=== PATIENT | male | born 1970 | race Caucasian/White ===

== ENCOUNTER 2017-06-01 11:58 | Day surgery (SDC) | payer OTHER ==
[~2017-06-01] VITALS: Ht 175.3 cm; Wt 91.4 kg
[~2017-06-01 11:58] MED LIST: GABAPENTIN100 MG PO; TRAMADOL HCL50 MG PO
== END 2017-06-01 14:15 | disposition home or self-care (01) ==
LOC: PAIN 11:58
DX: M50.122 Cervical disc disorder at C5-C6 level with radiculopathy (principal); G89.29 Other chronic pain; M48.02 Spinal stenosis, cervical region; M54.5 Low back pain; M51.16 Intervertebral disc disorders with radiculopathy, lumbar region; M47.26 Other spondylosis with radiculopathy, lumbar region; F41.8 Other specified anxiety disorders; F17.200 Nicotine dependence, unspecified, uncomplicated
CPT/HCPCS: J1100; J2250; J3010

== ENCOUNTER 2017-08-18 07:40 | Day surgery (SDC) | payer OTHER ==
[~2017-08-18] VITALS: Ht 175.3 cm; Wt 88.8 kg
[~2017-08-18 07:40] MED LIST changes: +DIPROSONE 0.05%15 GM TP; -GABAPENTIN100 MG PO; +IMITREX50 MG PO; +LORCET 5-325 M1 EACH PO; +NEURONTIN600 MG PO
== END 2017-08-18 09:24 | disposition home or self-care (01) ==
LOC: PAIN 07:40 → SDC 08:30 → PAIN 08:30
DX: M54.16 Radiculopathy, lumbar region (principal); M47.816 Spondylosis without myelopathy or radiculopathy, lumbar region; M51.26 Other intervertebral disc displacement, lumbar region; M25.78 Osteophyte, vertebrae; F17.200 Nicotine dependence, unspecified, uncomplicated; Z88.6 Allergy status to analgesic agent
CPT/HCPCS: J1100; J2250; J3010